=== PATIENT | female | born 1945 | race Caucasian/White ===

== ENCOUNTER → 2017-08-20 | Outpatient (CLI) | payer MEDICARE ==
--- NOTE | 2017-08-20 10:43 | US ---
EXAMINATION TYPE: US kidneys/renal and bladder DATE OF EXAM: 08/20/2017 COMPARISON: NONE CLINICAL HISTORY: N30.20 CHRONIC CYSTITIS. EXAM MEASUREMENTS: Right Kidney: 9.5 x 4.3 x 3.3 cm Left Kidney: 10.4 x 4.9 x 4.8 cm Post Void Residual Volume: 123.1 mL Right Kidney: mild hydronephrosis noted. No nephrolithiasis. Left Kidney: wnl . No hydronephrosis or nephrolithiasis. Bladder: There is eccentric wall thickening along the right lateral urinary bladder border that appea rs polypoid in nature. Bilateral Jets seen: Yes Normal Post Void Residual: No There is no evidence for hydronephrosis at this point in time. No nephrolithiasis is seen. No jaimee s are identified. Bilateral ureteral jets are seen. IMPRESSION: Eccentric wall thickening along the right lateral urinary bladder border. Further evaluation with dir ect visualization or CT urogram is recommended to exclude neoplasm. Additionally there is mild right hydronephrosis that could be a result of the right lateral thickening creating obstruction at the ure terovesicular junction.
== END ==
LOC: RADUSWWP 09:25
PROVIDERS: ATTEND Internal Medicine
DX: N30.20 Other chronic cystitis without hematuria (principal)
CPT/HCPCS: 76770

== ENCOUNTER → 2017-09-12 | Outpatient (CLI) | payer MEDICARE ==
--- NOTE | 2017-09-12 15:04 | CT ---
EXAMINATION TYPE: CT urogram wo/w con DATE OF EXAM: 09/12/2017 COMPARISON: Correlation ultrasound kidney 08/20/2017 HISTORY: 72-year-old female chronic cystitis, abnormal ultrasound of the bladder, recurrent UTIs TECHNIQUE: Contiguous axial scanning of the abdomen and pelvis performed without and with IV Contrast , patient injected with 100 mL of Isovue 300. Delayed images through the kidneys and bladder were obt ained. Coronal/sagittal reconstructions performed. 3-D reconstructions generated on a dedicated [employer] workstation. CT DLP: 2239.4 mGycm Automated exposure control for dose reduction was used. FINDINGS: Heart upper limits of normal in size without pericardial effusion. Ectatic lower descending thoracic aorta 2.9 cm. Some strandy atelectasis in the lower lungs without pleural effusion. There is a moderate-sized hiatal hernia. No focal liver lesion or biliary ductal dilatation. Portal venous system is patent. Gallbladder, adrenal glands, spleen, and pancreas appear within normal limits. There is a 1.0 cm isodense lesion medial upper pole left kidney too small for accurate CT characteriz ation, likely a cyst. Extrarenal pelvis on the right. No evidence for nephrolithiasis. No suspicious filling defect within the renal collecting systems or otherwise any suspicious renal lesion. There is suboptimal opacificat ion of the distal half of the ureters despite repeat 20 minute imaging. No dilated small bowel, free fluid, or free air. No mesenteric or retroperitoneal lymphadenopathy. Normal appendix. Scattered colonic diverticulosis along the right side of the colon and also within t he sigmoid colon without pericolonic inflammatory change. There is distortion and thickening along the right lateral wall of the bladder with focal indentation . There is pelvic floor relaxation with bulging convexity of the levator ani musculature and low posi tioning of the vesicourethral junction. Uterus surgically absent. No adnexal abnormality, abnormal fl uid collection, or pelvic lymphadenopathy seen. Bones: Bone island left femoral neck. Mild degenerative changes at the hips and SI joints. Severe hyp ertrophic facet arthropathy throughout the lumbar spine with grade 1 anterolisthesis at L5-S1. IMPRESSION: 1. DISTORTED AND THICKENED RIGHT LATERAL BLADDER WALL. UROTHELIAL NEOPLASM SHOULD BE EXCLUDED. CORREL ATE WITH URINE CYTOLOGY AND DIRECT VISUALIZATION. 2. NO EVIDENCE FOR NEPHROLITHIASIS OR SUSPICIOUS RENAL/COLLECTING SYSTEM LESION. THERE IS A 1 CM PROB ABLE CYST IN THE LEFT UPPER POLE. 3. SUBOPTIMAL FILLING OF THE LAST HALF OF THE BILATERAL URETERS LIMITING THEIR ASSESSMENT, DESPITE AD DITIONAL 20 MINUTE IMAGING. 4. NO HYDRONEPHROSIS. THERE IS AN EXTRARENAL PELVIS ON THE RIGHT LIKELY ACCOUNTING FOR THE ULTRASOUND FINDING. 5. MODERATE-SIZED HIATAL HERNIA, SCATTERED COLONIC DIVERTICULOSIS, AND PELVIC FLOOR RELAXATION.
== END | disposition home or self-care (01) ==
LOC: RADCTMAIN 12:24
PROVIDERS: ATTEND Internal Medicine
DX: K57.30 Diverticulosis of large intestine without perforation or abscess without bleeding (principal); K44.9 Diaphragmatic hernia without obstruction or gangrene; N32.89 Other specified disorders of bladder; N81.89 Other female genital prolapse; R93.41 Abnormal radiologic findings on diagnostic imaging of renal pelvis, ureter, or bladder
CPT/HCPCS: 82565; 84520; 74178; 36415; 74400; Q9967

== ENCOUNTER → 2017-09-24 | Outpatient (CLI) | payer MEDICARE ==
--- NOTE | 2017-09-26 10:34 | MM ---
Reason for exam: screening (asymptomatic). Last mammogram was performed 2 years and 1 month ago. History: Family history of breast cancer in sister at age 56. Physical Findings: A clinical breast exam by your physician is recommended on an annual basis and results should be correlated with mammographic findings. MG 3D Screening Mammo W/Cad Bilateral CC and MLO view(s) were taken. Prior study comparison: August 30, 2015, bilateral MG 3d screening mammo w/cad. January 24, 2014, bilateral MG screening mammo w CAD. There are scattered fibroglandular densities. No significant changes when compared with prior studies. ASSESSMENT: Negative, BI-RAD 1 RECOMMENDATION: Routine screening mammogram of both breasts in 1 year.
== END | disposition home or self-care (01) ==
LOC: RADMAMWWP 09:46
PROVIDERS: ATTEND Internal Medicine
DX: Z12.31 Encounter for screening mammogram for malignant neoplasm of breast (principal)
CPT/HCPCS: 77063; 77067

== ENCOUNTER → 2020-05-29 | Outpatient (CLI) | payer MEDICARE ==
--- NOTE | 2020-05-30 11:33 | MM ---
Reason for exam: screening (asymptomatic). Last mammogram was performed 2 years and 8 months ago. History: Family history of breast cancer in sister at age 56. Physical Findings: A clinical breast exam by your physician is recommended on an annual basis and results should be correlated with mammographic findings. MG 3D Screening Mammo W/Cad Bilateral CC and MLO view(s) were taken. Prior study comparison: September 24, 2017, bilateral MG 3d screening mammo w/cad. August 30, 2015, bilateral MG 3d screening mammo w/cad. The breast tissue is heterogeneously dense. This may lower the sensitivity of mammography. No significant changes when compared with prior studies. ASSESSMENT: Benign, BI-RAD 2 RECOMMENDATION: Routine screening mammogram of both breasts in 1 year.
== END | disposition home or self-care (01) ==
LOC: RADMAMWWP 08:59
PROVIDERS: ATTEND Internal Medicine
DX: Z12.31 Encounter for screening mammogram for malignant neoplasm of breast (principal)
CPT/HCPCS: 77063; 77067